=== PATIENT | male | born 1980 | race Hispanic/Latino ===

== ENCOUNTER 2021-08-15 16:49 | Emergency (ER) | payer BC, OTHER ==
[~2021-08-15] VITALS: Ht 172.7 cm; Wt 103.4 kg
[2021-08-15] MEDS ORDERED: ACETAMINOPHEN 325 MG TAB PO ONE (18:45)
[2021-08-15] MEDS ORDERED: AZITHROMYCIN250 MG PO (19:49)
[2021-08-15] MEDS ORDERED: VENTOLIN HFA18 GM INH (19:51)
== END 2021-08-15 20:09 | disposition home or self-care (01) ==
LOC: FSED 18:42
DX: U07.1 COVID-19 (principal); J20.9 Acute bronchitis, unspecified; R50.9 Fever, unspecified; R05.3 Chronic cough; E11.9 Type 2 diabetes mellitus without complications; E78.5 Hyperlipidemia, unspecified; F32.A Depression, unspecified
CPT/HCPCS: 71046; 99283